=== PATIENT | male | born 1955 | race Caucasian/White ===

== ENCOUNTER → 2019-02-20 | Outpatient (CLI) | payer OTHER ==
--- NOTE | 2019-02-20 15:04 | PCVCIMAG ---
APPROVED REPORT Indications Bruit Doppler Spectral Velocity Analysis PSV / EDVPSV / EDV ECA (R) 84 / 19 cm/sECA (L) 74 / 18 cm/s dICA (R) 55 / 24 cm/sdICA (L) 61 / 27 cm/s Mariya (R) 51 / 22 cm/smICA (L) 71 / 26 cm/s pICA (R) 50 / 16 cm/spICA (L) 75 / 22 cm/s Bulb (R) 59 / 13 cm/sBulb (L) 97 / 31 cm/s dCCA (R) 103 / 29 cm/sdCCA (L) 119 / 35 cm/s mCCA (R) 98 / 29 cm/smCCA (L) 107 / 35 cm/s Vert (R) 39 / 17 cm/sVert (L) 34 / 13 cm/s ICA/CCA 0.53ICA/CCA 0.63 Basic Measurements Blood Pressure: Pulses: Right Left RightLeft Brachial(Sitting) 128/64iyAh343/72mmHgTemporal Real Time B-Mode Imaging Vert. (R)AntegradeVert. (L)Antegrade Findings The right carotid bulb has mild plaque. The right proximal internal carotid artery shows no significant stenosis. The right common carotid artery shows no significant stenosis. The right external carotid artery shows no significant stenosis. The left carotid bulb has mild plaque. The left proximal internal carotid artery shows no significant stenosis. The left common carotid artery shows no significant stenosis. The left external carotid artery shows no significant stenosis. Conclusion 1. Mild bilateral plaquing without significant stenosis. 2. Antegrade vertebral flow
== END | disposition home or self-care (01) ==
LOC: PCVCIMAG 14:05
PROVIDERS: ATTEND Internal Medicine Cardiovascular Disease
DX: I65.23 Occlusion and stenosis of bilateral carotid arteries (principal); R93.1 Abnormal findings on diagnostic imaging of heart and coronary circulation; E78.00 Pure hypercholesterolemia, unspecified; I48.0 Paroxysmal atrial fibrillation; G47.33 Obstructive sleep apnea (adult) (pediatric); E78.5 Hyperlipidemia, unspecified; Z82.49 Family history of ischemic heart disease and other diseases of the circulatory system; Z87.891 Personal history of nicotine dependence; Z79.82 Long term (current) use of aspirin; Z88.0 Allergy status to penicillin; Z88.8 Allergy status to other drugs, medicaments and biological substances
CPT/HCPCS: 93880